=== PATIENT | male | born 1975 | race Caucasian/White ===

== ENCOUNTER 2018-09-06 13:43 | Observation (INO) ==
[2018-09-06] MEDS ORDERED: ASPIRIN CHEW 324 MG PO STA (13:55)
[2018-09-06] MEDS ORDERED: NITROGLYCERIN SL 0.4 MG/TAB TAB SL STA (13:55)
[2018-09-06 14:23] LABS: Basophils # (auto) 0.02 K/uL (0-0.2); Basophils % (auto) 0.5 %; Eosinophils # (auto) 0.14 K/uL (0-0.5); Eosinophils % (auto) 3.2 %; Hematocrit (blood only) 43.6 % (42-52); Hemoglobin 15.3 g/dL (14.0-18.0); Immature Granulocytes # (auto) 0.01 K/uL (0.00-0.02); Immature Granulocytes % (auto) 0.2 %; Lymphocytes # (auto) 1.65 K/uL (1.2-3.4); Lymphocytes % (auto) 37.2 %; Mean Corpuscular Hgb Conc 35.1 g/dL (32-36); Mean Platelet Volume 9.6 fL (7.4-10.4); Monocytes # (auto) 0.57 K/uL (0.11-0.59); Monocytes % (auto) 12.9 %; Neutrophils # (auto) 2.04 K/uL (1.4-6.5); Platelet Count 262 K/uL (130-400); RDW Coefficient of Variation 12.5 % (11.5-14.5); RDW Standard Deviation 39.8 fL (36.4-46.3); Red Blood Count 5.01 M/uL (4.7-6.1); White Blood Count 4.43 K/uL (4.8-10.8)
[2018-09-06 14:35] LABS: D Dimer < 190 ug/L FEU (0-500)
[2018-09-06 14:42] LABS: Alanine Aminotransferase 22 U/L (12-78); Albumin Level 3.8 gm/dl (3.4-5.0); Aspartate Aminotransferase 14 U/L (15-37); BUN Creatinine Ratio 18.9 (10-20); Blood Urea Nitrogen 18 mg/dl (7-18); Calcium 8.6 mg/dl (8.5-10.1); Carbon Dioxide 29 mmol/L (21-32); Chloride 106 mmol/L (98-107); Creatinine Clr Calc Pharmacy 111.6 ml/min; Est GFR (Non-African American) 97.5; Glucose 106 mg/dl (70-99); Potassium 3.6 mmol/L (3.5-5.1); Sodium 140 mmol/L (136-145)
[2018-09-06 14:46] LABS: Albumin Globulin Ratio 1.3 (0.9-2); Alkaline Phosphatase 69 U/L (45-117); Bilirubin,Total 0.5 mg/dl (0.2-1); Globulin 2.9 gm/dl (2.5-4.0); Total Protein 6.7 gm/dl (6.4-8.2); Troponin I < 0.015 ng/ml (0-0.045)
--- NOTE | 2018-09-06 14:47 | XRay Report ---
XR chest 1V portable HISTORY: 43 years-old Male Chest Pain acute atypical chest pain COMPARISON: Chest radiograph 08/15/2013 TECHNIQUE: Portable AP view of the chest FINDINGS: Cardiac silhouette is enlarged, unchanged. There is no pneumothorax, pleural effusion, focal airspace consolidation or overt pulmonary edema. Bones of the chest appear grossly intact. IMPRESSION: No acute process. The above report was generated using voice recognition software. It may contain grammatical, syntax o r spelling errors. Electronically signed by: Regino Heath M.D. 09/06/2018 2:45 PM
[2018-09-06] MEDS ORDERED: KETOROLAC TROMETHAMINE 15 MG/ML VIAL IV ONE (15:04)
[2018-09-06] MEDS ORDERED: GI COCKTAIL ED USE PO ONE (15:04)
[2018-09-06] MEDS ORDERED: MoRPHine SULFATE 4 MG/ML 1 ML CARP\\VIAL IV STA (15:57)
--- NOTE | 2018-09-06 16:22 | History & Physical Report ---
Date of Service September 06, 2018 Assessment & Plan (1) Chest pain: - Admit to tele for observation for r/o - Trend cardiac biomarkers, initial set was negative - EKG reviewed as above - Check 2 D echo - If negative enzymes can consider a stress test tomorrow morning. - Check lipids and A1C - Strong family hx of cardiac events including myocardial infarction (2) DVT prophylaxis: - Teds, lovenox subq History of Present Illness Primary Care Provider: [place] This is a 43 yo M without significant PMHx who presents with acute onset of chest pain last evening. It occurred around 10 pm with a crushing substernal chest pain, stabbing in nature. The patient received morphine sulfate 4 mg IV about 30 min prior to my exam, so history is limited due to somnolence. Pt notes he did not sleep well overnight as the pain never seemed to go away. He denies taking anything for analgesia. Reports that he was dizzy and slightly short of breath last evening which continued through this morning. FHx: Reports father of aortic aneurysm, grandparents of heart attacks late in age, and other uncles have also had heart attacks. 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 Allergies Allergy/AdvReac Type Severity Reaction Status Date / Time cayenne Allergy Severe SOB; Verified 09/06/18 14:40 FACIAL SWELLING onion Allergy Severe SOB; Verified 09/06/18 14:40 FACIAL SWELLING epinephrine Allergy Unknown UNKNOWN Verified 09/06/18 14:40 Davis Pepper Allergy Severe SOB; Uncoded 09/06/18 14:40 FACIAL SWELLING Red Pepper Allergy Severe SOB; Uncoded 09/06/18 14:40 FACIAL SWELLING Home Medications Home Medications Medication Instructions Recorded Confirmed Type No Known Home Medications 09/06/18 09/06/18 History Past Med/Surg History Family History Other Cancer Diabetes Social History Preferred Language: Malaysian Communication Ability: Effective Communication Ability Comment: drowsy post Morphine Chemical Processing Technician Required: No Beliefs That Will Affect Care: None Current Living Situation: Spouse and Family Other Information That Helps Us Care for You: No Feels Safe at Home: Yes Safety Concerns: Feels Safe At This Time Smoking Status: Never smoker Do You Dip or Chew Tobacco: No Second Hand Exposure: No Tobacco Cessation Education Requested by Patient: No Hx Alcohol Use: No Hx Substance Use: No Review of Systems Review of Systems: Constitutional: No fever, sweats or chills Eyes: No diplopia, no worsening or blurred vision ENT: normal hearing, no trouble swallowing Respiratory: No cough, sputum, dyspnea at rest or on exertion Cardiovascular: As per HPI. Abdomen: No pain, nausea, vomiting, diarrhea or constipation Musculoskeletal: No joint pain, calf pain, swelling Neurologic: + dizziness, No weakness, numbness/tingling, or balance problems Psychiatric: No anxiety or depression Skin: No rash or itch Physical Exam Physical Exam: General: awakens but is very somnolent through exam, no apparent distress Head: Normocephalic, atraumatic ENT: PERRL, EOMI, no pharyngeal exudate, mucous membranes moist Chest: Nontender to palpation, clear to auscultation, on room air, no adventitious breath sounds Cardiac: Regular rate and rhythm, no murmur, no JVD, normal peripheral pulses, good capillary refill Abdominal: NABS x 4 quadrants, soft, nontender to palpation, no rebound, guarding or tenderness Extremities: Normal inspection, no peripheral edema or erythema, calfs nontender to palpation Psych: Normal mood and affect Neuro: AAO x 3, strength intact bilaterally and related 5/5, no motor deficits, speech is clear, no peripheral sensory deficits Results & Data Vital Signs (Past 12 Hours) Vital Signs Temp Pulse Pulse Resp BP BP Pulse Ox 09/06/18 16:09 58 L 12 128/86 98 09/06/18 15:22 64 19 121/68 96 09/06/18 14:23 77 20 138/81 92 09/06/18 14:04 67 18 95 09/06/18 14:03 57 L 20 96 09/06/18 14:01 58 L 15 131/75 97 09/06/18 13:47 36.9 C 69 18 131/83 99 Diagnostic Findings XR chest 1V portable HISTORY: 43 years-old Male Chest Pain acute atypical chest pain COMPARISON: Chest radiograph 08/15/2013 TECHNIQUE: Portable AP view of the chest FINDINGS: Cardiac silhouette is enlarged, unchanged. There is no pneumothorax, pleural effusion, focal airspace consolidation or overt pulmonary edema. Bones of the chest appear grossly intact. IMPRESSION: No acute process. ECG Additional Comments: 06-SEP-2018 15:10:27 [facility]-EDSTAT ROUTINE RETRIEVAL Sinus bradycardia with sinus arrhythmia Inferior infarct , age undetermined Abnormal ECG When compared with ECG of 06-SEP-2018 13:54, (unconfirmed) No significant change was found 25mm/s 10mm/mV 150Hz 9.0.8 12SL 241 BAO: 10 Referred by: REFERRED SELF Unconfirmed Vent. rate 50 BPM IL interval 166 ms QRS duration 82 ms QT/QTc 424/386 ms P-R-T axes 43 12 32 Code Status & VTE Plan Code Status Full Code Supervising Physician Co-Signing Physician Notes Attending note: patient seen and examined with Rekha Prieto PA-C. I agree with her HPI, history, exam, ROS and A/P. I personally reviewed the labs and imaging findings. Patient with chest pain that started last at rest, has been fairly constant. Described as a dull pressure, radiates around left side of chest below nipple line. Some radiation into left shoulder. No nausea, no sweats, no dyspnea, no sharp pain into the back. No history of chest pain on exertion. ED tried several measures to improve pain but nothing seemed to help. They tried nitro, GI cocktail. Got morphine IV which made him lethargic. EKG shows sinus bradycardia, no signs of ischemia. Troponin negative and other labs normal. CXR normal. - Chest pain at rest will observe on tele, cycle troponin consult cardiology for recommendations, ie stress test check lipid profile in AM has strong family history but otherwise no significant risk factors
[2018-09-06] MEDS ORDERED: ACETAMINOPHEN 325 MG TAB PO PRN (16:25)
[2018-09-06] MEDS ORDERED: ONDANSETRON INJ 2 MG/ML 2 ML VIAL IV PRN (16:25)
[2018-09-06] MEDS ORDERED: NITROGLYCERIN SL 0.4 MG/TAB TAB SL PRN (16:25)
[2018-09-06] MEDS ORDERED: KETOROLAC 30 MG/ML VIAL IV PRN (17:45)
[2018-09-06 19:13] LABS: Partial Thromboplastin Time 26.7 Seconds (21.0-31.0); Prothrombin Time 10.4 Seconds (9.0-12.0)
--- NOTE | 2018-09-06 20:00 | Emergency Department Note ---
Entered by Virgilio Young acting as a scribe for Ajith Horowitz DO History of Present Illness General Chief complaint: Cardiac Assessment Stated complaint: CHEST PAIN,SOB, LIGHTHEADED Source: patient History of Present Illness Onset (ago): day(s) (last night) Location: chest Pain Consistency: + constant Quality: + stabbing and + other (tightness, pressure, fluttering) Exacerbated By: not by movement and not by other (breathing) Associated symptoms: + shortness of breath; no cough and no nausea/vomiting The patient is a 43 year old male who presents to the Emergency Room with complaints of constant left-sided chest pain beginning last night. 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 He reports that his pain was radiating toward his left shoulder last night. He reports associated shortness of breath. He describes his pain as stabbing, tightness, pressure, and occasionally fluttering. His pain is not worsened with movement or breathing. He states that he regularly exercises, and he has not been developing any chest pain from exercise. He denies jaw pain, coughing, rhinorrhea, nausea, vomiting, or diarrhea. Patient denies diabetes, hypertension, hyperlipidemia, CAD, history of sudden at a young age, family history of heart attack, swelling of calves, recent trips, history of immobilization or recent surgery, prior history of DVT, hemoptysis, history of malignancy, history of smoking, history of cancer, or control/estrogen use. Home Medications Home Medications Medication Instructions Recorded Confirmed Type No Known Home Medications 09/06/18 09/06/18 History Allergies Allergy/AdvReac Type Severity Reaction Status Date / Time cayenne Allergy Severe SOB; Verified 09/06/18 14:40 FACIAL SWELLING onion Allergy Severe SOB; Verified 09/06/18 14:40 FACIAL SWELLING epinephrine Allergy Unknown UNKNOWN Verified 09/06/18 14:40 Davis Pepper Allergy Severe SOB; Uncoded 09/06/18 14:40 FACIAL SWELLING Red Pepper Allergy Severe SOB; Uncoded 09/06/18 14:40 FACIAL SWELLING Past Med/Surg History Medical History No significant past medical history Family History Other Cancer Diabetes Social History Preferred Language: Greek Communication Ability: Effective Communication Ability Comment: drowsy post Morphine Cableway Operator Required: No Beliefs That Will Affect Care: None Current Living Situation: Spouse and Family Other Information That Helps Us Care for You: No Feels Safe at Home: Yes Safety Concerns: Feels Safe At This Time Smoking Status: Never smoker Do You Dip or Chew Tobacco: No Second Hand Exposure: No Tobacco Cessation Education Requested by Patient: No Hx Alcohol Use: No Hx Substance Use: No Review of Systems See HPI for pertinent positives & negatives. and A total of 10 systems reviewed and were otherwise negative Physical Exam Vital Signs Vital Signs - 24 hr 09/06/18 13:47 09/06/18 14:01 09/06/18 14:03 Temperature 36.9 C Temperature Source Oral Sepsis Recent Fever Within 48 Hours No Sepsis New/Unexplained Change in Mental Status No Sepsis Action Taken by Nursing No Action Required Pulse Rate 69 58 L 57 L Pulse Rate [Apical] Pulse Rate from SpO2 Sensor 57 L Pulse Rhythm Regular Pulse Rhythm [Apical] Pulse Strength [Apical] Respiratory Rate 18 15 20 Respiratory Effort / Characteristics Non-Labored Spontaneous Respiratory Depth Normal Respiratory Pattern Regular Blood Pressure 131/83 131/75 Blood Pressure [Left Arm] Blood Pressure [Right Arm] Blood Pressure Mean 99 93 Blood Pressure Mean [Left Arm] Blood Pressure Mean [Right Arm] Blood Pressure Position Sitting Blood Pressure Position [Right Arm] Pulse Oximetry 99 97 96 Oxygen Delivery Method Room Air Room Air 09/06/18 14:04 09/06/18 14:23 09/06/18 15:22 Temperature Temperature Source Sepsis Recent Fever Within 48 Hours Sepsis New/Unexplained Change in Mental Status Sepsis Action Taken by Nursing Pulse Rate 67 Pulse Rate [Apical] 77 64 Pulse Rate from SpO2 Sensor 64 Pulse Rhythm Pulse Rhythm [Apical] Regular Pulse Strength [Apical] Normal Respiratory Rate 18 20 19 Respiratory Effort / Characteristics Non-Labored Spontaneous Non-Labored Respiratory Depth Normal Normal Respiratory Pattern Regular Blood Pressure Blood Pressure [Left Arm] 138/81 121/68 Blood Pressure [Right Arm] Blood Pressure Mean Blood Pressure Mean [Left Arm] 100 85 Blood Pressure Mean [Right Arm] Blood Pressure Position Blood Pressure Position [Right Arm] Pulse Oximetry 95 92 96 Oxygen Delivery Method Room Air Room Air 09/06/18 16:09 09/06/18 16:51 09/06/18 17:45 Temperature 36.5 C Temperature Source Oral Sepsis Recent Fever Within 48 Hours Sepsis New/Unexplained Change in Mental Status Sepsis Action Taken by Nursing Pulse Rate 46 L Pulse Rate [Apical] 58 L 45 L Pulse Rate from SpO2 Sensor Pulse Rhythm Pulse Rhythm [Apical] Regular Pulse Strength [Apical] Respiratory Rate 12 12 16 Respiratory Effort / Characteristics Non-Labored Non-Labored Spontaneous Respiratory Depth Normal Normal Respiratory Pattern Regular Blood Pressure 128/75 Blood Pressure [Left Arm] 128/86 159/84 H Blood Pressure [Right Arm] Blood Pressure Mean Blood Pressure Mean [Left Arm] 100 109 Blood Pressure Mean [Right Arm] Blood Pressure Position Blood Pressure Position [Right Arm] Pulse Oximetry 98 96 97 Oxygen Delivery Method Room Air Room Air Room Air 09/06/18 19:26 Temperature 36.7 C Temperature Source Oral Sepsis Recent Fever Within 48 Hours Sepsis New/Unexplained Change in Mental Status Sepsis Action Taken by Nursing Pulse Rate Pulse Rate [Apical] 55 L Pulse Rate from SpO2 Sensor Pulse Rhythm Pulse Rhythm [Apical] Pulse Strength [Apical] Respiratory Rate 18 Respiratory Effort / Characteristics Respiratory Depth Normal Respiratory Pattern Blood Pressure Blood Pressure [Left Arm] Blood Pressure [Right Arm] 120/71 Blood Pressure Mean Blood Pressure Mean [Left Arm] Blood Pressure Mean [Right Arm] 87 Blood Pressure Position Blood Pressure Position [Right Arm] Sitting Pulse Oximetry 96 Oxygen Delivery Method Room Air GENERAL: sitting up in bed, alert, well appearing, well nourished, no distress, non-toxic EYE EXAM: normal conjunctiva OROPHARYNX: no exudate, no erythema, lips, buccal mucosa, and tongue normal and mucous membranes are moist NECK: supple, no nuchal rigidity, no adenopathy, non-tender LUNGS: Clear to auscultation. Normal chest wall mechanics HEART: no murmurs, S1 normal and S2 normal ABDOMEN: abdomen soft, non-tender, normo-active bowel sounds, no masses, no rebound or guarding. BACK: Back is symmetrical on inspection and there is no deformity, no midline tenderness, no CVA tenderness. SKIN: no rashes and no bruising UPPER EXTREMITIES: upper extremities are grossly normal. LOWER EXTREMITIES: No pitting edema. Calves are equal bilaterally. NEURO EXAM: Normal sensorium, cranial nerves II-XII grossly intact, normal speech, no gross weakness of arms, no gross weakness of legs. Gross sensation intact. Course ED COURSE: Vital signs were reviewed and were normal The patients medical record was reviewed The above diagnostic studies were performed and reviewed. ED treatments and interventions as stated above. 1350: The patient was evaluated in room B11B. A complete history and physical examination was performed. 1503: I checked on the patient. 1550: I updated the patient on current results and plan. 1612: I consulted Dr. Lucas [facility] Hospitalist. The patient will be reevaluated for hospitalization. Based on the patients age, coexisting illnesses, exam and lab findings the decision to treat as an inpatient was made. The patient remained stable while under my care. The patient will be evaluated for further management. Administered Medications Ketorolac Tromethamine (Toradol) 30 mg IV Q6H PRN PRN Reason: Pain Stop: 09/11/18 17:44 Last Admin: 09/06/18 19:23 Dose: 30 mg Documented by: [id number] Discontinued Medications Al Hydrox/Mg Hydrox/Simethicone () 1 dose PO ONE ONE Stop: 09/06/18 15:05 Last Admin: 09/06/18 15:17 Dose: 1 dose Documented by: [id number] Aspirin (Aspirin) 324 mg PO NOW STA Stop: 09/06/18 13:56 Last Admin: 09/06/18 14:19 Dose: 324 mg Documented by: [id number] Ketorolac Tromethamine (Toradol) 15 mg IV NOW ONE Stop: 09/06/18 15:05 Last Admin: 09/06/18 15:17 Dose: 15 mg Documented by: [id number] Morphine Sulfate (Morphine Sulfate) 4 mg IV NOW STA Stop: 09/06/18 15:58 Last Admin: 09/06/18 16:04 Dose: 4 mg Documented by: [id number] Nitroglycerin (Nitrostat) 0.4 mg SL NOW STA Stop: 09/06/18 13:56 Last Admin: 09/06/18 14:20 Dose: 0.4 mg Documented by: [id number] Medical Decision Making Differential Diagnosis Differential diagnoses includes but is not limited to acute coronary syndrome, myocardial infarction, pericarditis, pulmonary embolus, aortic dissection, pneumonia, pneumothorax, musculoskeletal, shingles, esophageal. Medical Records Attestation: I reviewed the patient's medical records. Home Medications Current Medication List: was personally reviewed by me Laboratory Data Attestation: I reviewed the patient's lab results. Result diagrams: 09/06/18 14:08 09/06/18 14:08 Lab Results 09/06/18 09/06/18 09/06/18 Range/Units 14:08 14:08 14:08 WBC 4.43 L (4.8-10.8) K/uL RBC 5.01 (4.7-6.1) M/uL Hgb 15.3 (14.0-18.0) g/dL Hct 43.6 (42-52) % MCV 87.0 (80-100) fL MCH 30.5 (25-34) pg MCHC 35.1 (32-36) g/dL RDW Std Deviation 39.8 (36.4-46.3) fL RDW Coeff of Kale 12.5 (11.5-14.5) % Plt Count 262 (130-400) K/uL MPV 9.6 (7.4-10.4) fL Immature Gran % (Auto) 0.2 % Neut % (Auto) 46.0 % Lymph % (Auto) 37.2 % Angelina % (Auto) 12.9 % Eos % (Auto) 3.2 % Baso % (Auto) 0.5 % Immature Gran # (Auto) 0.01 (0.00-0.02) K/uL Neut # (Auto) 2.04 (1.4-6.5) K/uL Lymph # (Auto) 1.65 (1.2-3.4) K/uL Angelina # (Auto) 0.57 (0.11-0.59) K/uL Eos # (Auto) 0.14 (0-0.5) K/uL Baso # (Auto) 0.02 (0-0.2) K/uL PT (9.0-12.0) Seconds INR (0.9-1.1) APTT (21.0-31.0) Seconds PTT Ratio D-Dimer < 190 (0-500) ug/L FEU Sodium 140 (136-145) mmol/L Potassium 3.6 (3.5-5.1) mmol/L Chloride 106 (98-107) mmol/L Carbon Dioxide 29 (21-32) mmol/L Anion Gap 5.0 (3-11) BUN 18 (7-18) mg/dl Creatinine 0.94 (0.6-1.4) mg/dl Est Cr Clr Drug Dosing 111.6 ml/min Est GFR ( Amer) 113.0 Est GFR (Non-Af Amer) 97.5 BUN/Creatinine Ratio 18.9 (10-20) Glucose 106 H (70-99) mg/dl Calcium 8.6 (8.5-10.1) mg/dl Total Bilirubin 0.5 (0.2-1) mg/dl AST 14 L (15-37) U/L ALT 22 (12-78) U/L Alkaline Phosphatase 69 (45-117) U/L Troponin I < 0.015 (0-0.045) ng/ml Total Protein 6.7 (6.4-8.2) gm/dl Albumin 3.8 (3.4-5.0) gm/dl Globulin 2.9 (2.5-4.0) gm/dl Albumin/Globulin Ratio 1.3 (0.9-2) Lipase 277 (73-393) U/L 09/06/18 Range/Units 14:08 WBC (4.8-10.8) K/uL RBC (4.7-6.1) M/uL Hgb (14.0-18.0) g/dL Hct (42-52) % MCV (80-100) fL MCH (25-34) pg MCHC (32-36) g/dL RDW Std Deviation (36.4-46.3) fL RDW Coeff of Kale (11.5-14.5) % Plt Count (130-400) K/uL MPV (7.4-10.4) fL Immature Gran % (Auto) % Neut % (Auto) % Lymph % (Auto) % Angelina % (Auto) % Eos % (Auto) % Baso % (Auto) % Immature Gran # (Auto) (0.00-0.02) K/uL Neut # (Auto) (1.4-6.5) K/uL Lymph # (Auto) (1.2-3.4) K/uL Angelina # (Auto) (0.11-0.59) K/uL Eos # (Auto) (0-0.5) K/uL Baso # (Auto) (0-0.2) K/uL PT 10.4 (9.0-12.0) Seconds INR 1.0 (0.9-1.1) APTT 26.7 (21.0-31.0) Seconds PTT Ratio 1.0 D-Dimer (0-500) ug/L FEU Sodium (136-145) mmol/L Potassium (3.5-5.1) mmol/L Chloride (98-107) mmol/L Carbon Dioxide (21-32) mmol/L Anion Gap (3-11) BUN (7-18) mg/dl Creatinine (0.6-1.4) mg/dl Est Cr Clr Drug Dosing ml/min Est GFR ( Amer) Est GFR (Non-Af Amer) BUN/Creatinine Ratio (10-20) Glucose (70-99) mg/dl Calcium (8.5-10.1) mg/dl Total Bilirubin (0.2-1) mg/dl AST (15-37) U/L ALT (12-78) U/L Alkaline Phosphatase (45-117) U/L Troponin I (0-0.045) ng/ml Total Protein (6.4-8.2) gm/dl Albumin (3.4-5.0) gm/dl Globulin (2.5-4.0) gm/dl Albumin/Globulin Ratio (0.9-2) Lipase (73-393) U/L Imaging Data Radiologist's Impression: Radiology results as stated below per my review and the radiologist's interpr etation: XR chest 1V portable HISTORY: 43 years-old Male Chest Pain acute atypical chest pain COMPARISON: Chest radiograph 08/15/2013 TECHNIQUE: Portable AP view of the chest FINDINGS: Cardiac silhouette is enlarged, unchanged. There is no pneumothorax, pleural effusion, focal airspace consolidation or overt pulmonary edema. Bones of the chest appear grossly intact. IMPRESSION: No acute process. The above report was generated using voice recognition software. It may contain grammatical, syntax or spelling errors. Electronically signed by: Regino Heath M.D. 09/06/2018 2:45 PM ECG Data Attestation: I personally reviewed and interpreted this ECG as follows: Indication: chest pain Rate (beats per minute): 58 Rhythm: sinus bradycardia Findings: + other (normal axis); no PVC Additional Comments: Repeat EKG shows sinus bradycardia at 50 bpm. Normal axis, no PVCs. Blood Pressure Blood Pressure Findings: Normal blood pressure Blood Pressure Disposition: did not require urgent referral MDM Narrative Patient is a 43-year-old male with no significant past medical history presents the ER for chest pain. This is been fairly persistent since this morning. Patient does have some left shoulder discomfort with this and shortness of breath. Patient describes as a heaviness associate with sharp stabbing pain. Multiple uncles and grandparents with MIs. Patient denies any diabetes hypertension hyperlipidemia CAD or sudden in young age.EKG was unremarkable. Chest x-ray was unremarkable. Troponin normal CBC with a mild leukopenia at 4000. And BMP was unremarkable. D-dimer was negative. Patient was given nitro and pain improved/resolved but eventually returned. Patient was given morphine and I discussed case with the hospitalist. Patient was given aspirin as well. Patient was admitted for observation. Impression & Plan Precordial chest pain Discharge Plan Visit Data *Final* Discharge Date/Time: 09/06/18 16:51 Chief Complaint: Cardiac Assessment Stated Complaint: CHEST PAIN,SOB, LIGHTHEADED ED Provider: Ajith Horowitz Discharge Problem: Precordial chest pain Patient Disposition: Admitted As Inpatient Discharge Instructions Interventions: ED Discharge Assessment Last Done: 09/06/18 16:51 The scribe's documentation has been prepared under my direction and personally reviewed by me in its entirety. I confirm that the note above accurately reflects all work, treatment, procedures, and medical decision making performed by me.
[2018-09-07 06:36] LABS: Hematocrit (blood only) 45.2 % (42-52); Hemoglobin 15.6 g/dL (14.0-18.0); Mean Corpuscular Hgb Conc 34.5 g/dL (32-36); Mean Corpuscular Volume 87.9 fL (80-100); Mean Platelet Volume 9.6 fL (7.4-10.4); Platelet Count 230 K/uL (130-400); RDW Coefficient of Variation 12.4 % (11.5-14.5); RDW Standard Deviation 40.2 fL (36.4-46.3); Red Blood Count 5.14 M/uL (4.7-6.1); White Blood Count 3.67 K/uL (4.8-10.8)
[2018-09-07 07:07] LABS: Alanine Aminotransferase 20 U/L (12-78); Albumin Level 3.4 gm/dl (3.4-5.0); Aspartate Aminotransferase 11 U/L (15-37); BUN Creatinine Ratio 19.1 (10-20); Blood Urea Nitrogen 19 mg/dl (7-18); Calcium 8.3 mg/dl (8.5-10.1); Carbon Dioxide 31 mmol/L (21-32); Chloride 106 mmol/L (98-107); Creatinine Clr Calc Pharmacy 106.5 ml/min; Est GFR (African American) 106.2; Est GFR (Non-African American) 91.6; Glucose 109 mg/dl (70-99); Potassium 4.1 mmol/L (3.5-5.1); Sodium 140 mmol/L (136-145)
[2018-09-07 07:08] LABS: Estimated Average Glucose 123 mg/dl; Hemoglobin A1C 5.9 % (4.5-5.6)
[2018-09-07 07:12] LABS: Albumin Globulin Ratio 1.1 (0.9-2); Alkaline Phosphatase 66 U/L (45-117); Bilirubin,Total 0.8 mg/dl (0.2-1); Chol HDL Ratio 5; Cholesterol 177 mg/dl (0-200); HDL Cholesterol 39 mg/dl; LDL Cholesterol Calculated 119 mg/dl; Total Protein 6.4 gm/dl (6.4-8.2); Triglycerides 96 mg/dl (0-150); Troponin I < 0.015 ng/ml (0-0.045); VLDL Cholesterol 19 mg/dl
[2018-09-07] MEDS ORDERED: ENOXAPARIN INJ 40 MG/0.4 ML SYR SQ SCH (09:00)
[2018-09-07] MEDS ORDERED: KETOROLAC 30 MG/ML VIAL IV ONE (09:41)
--- NOTE | 2018-09-07 09:58 | Cardiology Consultation ---
Date of Consultation September 07, 2018 Assessment & Plan (1) Chest pain: The patient has been experiencing a constant chest discomfort since Friday evening. Fortunately, there were no EKG changes, and the patient's troponin levels are undetectable. Baseline echocardiogram is normal. Suspect that this may be musculoskeletal as the patient was quite vigorous throughout the day on Friday. We will proceed with a stress echocardiogram to completely rule out a cardiac source of his discomfort. History of Present Illness Attending Physician: Damion Lucas DO History of Present Illness Mr. Mcneil is a 43-year-old male admitted yesterday with a chest pain syndrome. Discussed issues with assistance cardiac management. Patient claims he was in his usual state of health until Friday when he began to experience substernal chest pressure and tightness with occasional stabbing of discomfort. His symptoms occurred spontaneously. Patient had been very active during the day Friday, and was moving tables and chairs Friday for a benefit gathering. When the patient awoke Friday morning, he was still experiencing his chest discomfort. However, it began to radiate to his neck, left shoulder, and his left upper. He noticed some nausea and became quite anxious. He proceeded directly to the emergency room for further care. Arrival here, patient received a sublingual nitroglycerin tablet which may have improved his symptoms. The patient is still experiencing a vague substernal chest discomfort. There are no other associated symptoms such as shortness of breath, nausea, vomiting, or diaphoresis. The patient does exercise on occasion running as much as 2 miles. 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 He has never experienced exertional angina pectoris or limiting dyspnea. He further denies syncope, presyncope, PND, orthopnea, palpitations, lower extremity edema, and claudication. We have discussed the need for a stress echocardiogram to rule out myocardial ischemia. The patient understands and agrees to proceed. Past medical and surgical history 1. 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 Allergies Allergy/AdvReac Type Severity Reaction Status Date / Time cayenne Allergy Severe SOB; Verified 09/06/18 14:40 FACIAL SWELLING onion Allergy Severe SOB; Verified 09/06/18 14:40 FACIAL SWELLING epinephrine Allergy Unknown UNKNOWN Verified 09/06/18 14:40 Davis Pepper Allergy Severe SOB; Uncoded 09/06/18 14:40 FACIAL SWELLING Red Pepper Allergy Severe SOB; Uncoded 09/06/18 14:40 FACIAL SWELLING Home Medications Home Medications Medication Instructions Recorded Confirmed Type No Known Home Medications 09/06/18 09/06/18 History Patient History Medical History No significant past medical history Family History Other Cancer Diabetes Social History Preferred Language: Mohawk Communication Ability: Effective Communication Ability Comment: drowsy post Morphine Second Officer Required: No Beliefs That Will Affect Care: None Current Living Situation: Spouse and Family Other Information That Helps Us Care for You: No Feels Safe at Home: Yes Safety Concerns: Feels Safe At This Time Smoking Status: Never smoker Do You Dip or Chew Tobacco: No Second Hand Exposure: No Tobacco Cessation Education Requested by Patient: No Hx Alcohol Use: No Hx Substance Use: No Physical Exam Physical Exam: In general this is a well-developed well-nourished white male in no acute distress. HEENT exam is negative. Neck is supple with full carotid upstrokes. There are no carotid bruits. Jugular venous pressure is flat at 90. There is no thyromegaly. Cardiovascular exam reveals a regular rhythm with a normal S1 and S2. No S3, S4, or murmurs are noted. Lungs are clear without rales, rhonchi, or wheezes. Abdomen is soft and nontender without bruits. Extremities reveal intact radial artery and posterior tibial pulses bilaterally. There is no peripheral edema. Results & Data Vital Signs (Past 12 Hours) Vital Signs Temp Pulse Pulse Resp BP Pulse Ox 09/07/18 08:00 49 L 09/07/18 07:11 36.2 C L 51 L 16 112/67 95 09/07/18 04:42 36.4 C L 46 L 18 107/63 97 09/07/18 00:32 48 L 09/06/18 23:52 36.4 C L 49 L 22 122/72 94 Laboratory Results CBC notes a hemoglobin of 15.6, hematocrit 45.2, white count 3.7, and platelet count [id number]. Electrolytes noticed sodium 140, potassium 4.1, chloride 106, bicarb 31, BUN 19, and creatinine 0.99. Three troponin I levels are undetectable at less than 0.015. 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 Echocardiogram notes normal left ventricular systolic function without wall motion abnormalities. There is no valvular pathology. Chest x-ray shows no acute disease.
--- NOTE | 2018-09-07 11:31 | Discharge Summary ---
Date of Service September 07, 2018 Admission HPI Per Admitting Provider This is a 43 yo M without significant PMHx who presents with acute onset of chest pain last evening. It occurred around 10 pm with a crushing substernal chest pain, stabbing in nature. The patient received morphine sulfate 4 mg IV about 30 min prior to my exam, so history is limited due to somnolence. Pt notes he did not sleep well overnight as the pain never seemed to go away. He denies taking anything for analgesia. Reports that he was dizzy and slightly short of breath last evening which continued through this morning. FHx: Reports father of aortic aneurysm, grandparents of heart attacks late in age, and other uncles have also had heart attacks. 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 Admission Exam Per Admitting Provider General: awakens but is very somnolent through exam, no apparent distress Head: Normocephalic, atraumatic ENT: PERRL, EOMI, no pharyngeal exudate, mucous membranes moist Chest: Nontender to palpation, clear to auscultation, on room air, no adventitious breath sounds Cardiac: Regular rate and rhythm, no murmur, no JVD, normal peripheral pulses, good capillary refill Abdominal: NABS x 4 quadrants, soft, nontender to palpation, no rebound, guarding or tenderness Extremities: Normal inspection, no peripheral edema or erythema, calfs nontender to palpation Psych: Normal mood and affect Neuro: AAO x 3, strength intact bilaterally and related 5/5, no motor deficits, speech is clear, no peripheral sensory deficits Principal Diagnosis Chest pain at rest Discharge Exam Constitutional WD/WN, vitals as above Eyes PERRL, conjunctivae normal, anicteric sclerae ENMT external ear and nose normal, oropharynx normal Neck trachea midline, no thyromegaly Respiratory normal respiratory effort, lungs clear to auscultation Cardiovascular RRR, no murmur, no edema Gastrointestinal (Abdomen) normal bowel sounds, soft, nontender, no hepatosplenomegaly Musculoskeletal no cyanosis or clubbing, extremities motor strength 5/5 Skin no rashes, warm and dry Neurologic patellar DTR's 2+ bilat, sensation intact and PERRL, EOMI, accommodation nl, no face palsy, no dysarthria Psychiatric A+Ox3, euthymic affect Lymphatic no cervical or axillary lymphadenopathy Discharge Data Allergies Allergy/AdvReac Type Severity Reaction Status Date / Time cayenne Allergy Severe SOB; Verified 09/06/18 14:40 FACIAL SWELLING onion Allergy Severe SOB; Verified 09/06/18 14:40 FACIAL SWELLING epinephrine Allergy Unknown UNKNOWN Verified 09/06/18 14:40 Davis Pepper Allergy Severe SOB; Uncoded 09/06/18 14:40 FACIAL SWELLING Red Pepper Allergy Severe SOB; Uncoded 09/06/18 14:40 FACIAL SWELLING Consultations 09/06/18 17:43 ED Decision to Admit Stat 09/06/18 17:45 Consult Cardiology Routine Hospital Course (1) Chest pain: - Admit to tele for observation for r/o troponin negative x 3 sets EKG on admission and in the morning showed NSR cardiology evaluated, took for exercise stress echo normal exercise stress echo on 09/07 cardiology cleared for discharge normal chest x-ray D dimer was normal ruling out PE likely the chest pain due to anxiety he admits to a lot of stress in his life encouraged him to follow up closely with his PCP to discuss options for stress relief including medications (2) DVT prophylaxis: - Teds, lovenox subq Total Time Total Time Spent Total Time Spent (In Minutes): 30 minutes Total Time Includes: Examination of the Patient, Discharge Planning, Medication Reconciliation and Communication With Other Providers Discharge Plan Discharge Items Patient Disposition: Home - Self-Care Reason For Visit: CHEST PAIN Discharge Diagnosis: Chest pain, non-cardiac Condition: Good Discharge Goals: Improve disease control and Improve function Activity: Resume your previous activity Lifting: None Bathing: No limitations Sexual Activity: When tolerated Exercise/Sports: None Driving/Machine Use: No limitations Non-emergency contact: Primary Care Provider Call non-emergency contact if: you have any medication questions, your symptoms worsen, your pain is not controlled and you have a fever Follow-up/Referrals: [facility] [Primary Care Provider] - Diet: Heart Healthy Addtl Provider Instructions: Medications: no new medications Chest pain, non-cardiac EKG x 2 was normal, no signs of ischemia troponin x 3 sets was normal exercise stress echocardiogram normal today, no signs of ischemia echo shows good heart function Anxiety/Stress: could be the reason for your symptoms please schedule appointment with Dr. Germain to discuss stress, options for treatment typical treatment for stress/anxiety is three fold first, some medications can be helpful self help such as healthy stress relief (exercise) talking about your stress with a counselor FOLLOW UP - again, call for appt with Dr. Germain Prescriptions: No Action No Known Home Medications RF: 0 Stand-Alone Forms: [facility] Discharge Orders: Discharge Order (Routine); Ordered 09/07/18 Ordered By: Damion Lucas Admission Data Admit Date/Time: 09/06/18 16:22 Attending Provider: Damion Lucas Admit Provider: Damion Lucas Primary Care Provider: [facility] Other Providers: Damion Lucas ; Juan David Sauceda Service: Telemetry Other Interventions: Discharge Summary Assessment (RN) Last Done: 09/07/18 11:32 DC Date/Time DO NOT enter until pt leaves facility: 09/07/18 11:44
--- NOTE | 2018-09-07 15:05 | Medical Student Progress Note ---
Date of Service September 07, 2018 Assessment & Plan (1) Chest pain: Three sets of cardiac enzymes are negative, EKG shows no AL-concerning findings, echo and stress test are normal. He does have a strong family history of cardiac events including AL, but that does not appear to be the culprit here. His symptoms appear to be mostly resolved. He has no history of cardiac pathology. Physical exam is completely normal. This is most likely related to anxiety rather than a cardiac cause. Ready for discharge; pt told to follow up with PCP to investigate non-cardiac causes. (2) DVT prophylaxis: Pt is ambulatory, energetic, and prepared for discharge. He was pacing when I entered. Subjective Mr. Mcneil states that he is feeling notably better today. He was concerned he was having a heart attack, and he is thankful to hear that the echo and stress test indicate this is unlikely. He had initially experienced both a dull, constant substernal chest pain as well as a pinpoint sharp chest pain near the cardiac apex, though the sharp apex pain has subsided and the substernal pain has decreased from an 7/10 to a 2/10 and he is much less worried now. He says he had a BM this morning and is passing gas and eating well. He was eating a banana and walking around when I came in. He says his breathing is fine and he is having no concerns. He states he has no previous cardiac, respiratory, or GI concerns, takes no medications, and has had no episodes like this before. 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 He says his stress and physical exertion levels were ordinary yesterday, though he supposes stress likely is a contributing factor to his symptoms given that the testing shows no cardiac culprit. Constitutional: no fever, no chills, no fatigue and no anore sunil Ear, Nose, Mouth, Throat: no dizziness Respiratory: no cough, no dyspnea , no dyspnea on exertion, no pain on inspiration and no wheezing Cardiovascular: + chest pain; no radiating jaw, neck or arm pain and no palpitations Gastrointestinal: no abdominal pain, no nausea, no vomiting, no constipation and no diarrhea/loose stools Neurologic: no headache(s) Physical Exam Vital Signs (Past 24 Hours): Last Vital Signs Temp 36.2 C L 04/29/19 11:32 Pulse 51 L 09/07/18 11:32 Resp 16 09/07/18 11:32 BP 159/84 H 09/07/18 11:32 Pulse Ox 95 09/07/18 11:32 Constitutional: WD/WN, vitals as above no acute distress and not ill appearing Eyes: PERRL, conjunctivae normal, anicteric sclerae ENMT: external ear and nose normal, oropharynx normal Respiratory: normal respiratory effort, lungs clear to auscultation Cardiovascular: RRR, no murmur, no edema Gastrointestinal (Abdomen): normal bowel sounds, soft, nontender, no hepatosplenomegaly Musculoskeletal: no cyanosis or clubbing, extremities motor strength 5/5 Skin: no rashes, warm and dry Psychiatric: A+Ox3, euthymic affect Lymphatic: no cervical or axillary lymphadenopathy
== END 2018-09-07 11:44 | disposition home or self-care (01) ==
LOC: ED 13:43 → 2S 13:43